=== PATIENT | female | born 2000 ===

== ENCOUNTER 2020-02-05 04:25 | Inpatient (IN) ==
--- NOTE | 2020-02-05 05:08 | History & Physical Report ---
Date of Service February 05, 2020 Assessment & Plan (1) Sepsis: Possible deep neck space infection (? Javier's angina) recent tonsillectomy for chronic tonsillitis hypertension BP currently stable hyperprolactinemia as per records, mild elevation possibly from PCOS as per outpatient Endocrinology note ADD as per records Hyperglycemia, insulin resistance from PCOS, outpatient hemoglobin A1c of 5.02 September 2018 ICU monitoring to monitor for airway obstruction Cultures, Unasyn ENT consultation Re: Post tonsillectomy submandibular swelling ([facility] ER provider already in touch with Dr. Cruz.) N.p.o. until patient seen by ENT. DVT prophylaxis. SCDs RE post tonsillectomy bleed Full code Case discussed with Dr. Cruz. He agrees with antibiotics for now. Hold off on additional steroid Rx until he sees patient in a.m. Text document was generated using [employer] recognition software. It may contain grammatical or spelling errors. Kindly contact undersigned for clarification of any documentation item in question. History of Present Illness Chief Complaint: ENT evaluation Primary Care Provider: Desi Hayden PA-C History obtained from patient and records. History somewhat limited from patient due to dysarthria/muffled voice. Medical history significant for hypertension, hyperprolactinemia as per records, ADD as per records, PCOS, chronic tonsillitis status post recent tonsillectomy. Patient underwent elective tonsillectomy for recurrent tonsillitis/tonsillar calculi at [facility] same-day surgery last February 02, 2020. As per operative note, Surgicel powder and Surgicel snow placed in the tonsillar fossae due to superficial nature of blood vessels running along the superior co nstrictor muscles of the pharynx. Anterior posterior tonsillar pillars were subsequently approximated by Vicryl. At home, progressive dysphagia/sore throat especially to solids noted by patient. Yesterday, patient noted achy submandibular swelling, muffled voice, and limited mouth opening. No tooth ache symptoms. No chest pain, no S OB. No fever, no chills. Patient subsequently gagged after taking a pill. Note of bloody sputum. Patient brought to [facility] ER for evaluation. Patient noted to be tachycardic on arrival at the ER. Sublingual swelling appreciated by ER provider on [place] as per documentation. Bedside neck ultrasound done by ER provider disclosed a hypoechoic area in the submental/submandibular space concerning for fluid collection causing pressure on upper airways. Patient given Decadron and Clindamycin at the ER. No ENT coverage at [facility] this weekend. Patient transferred to [facility] for ENT services after ER provider discussed case with ENT specialist building consultant for patient surgeon. 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 Allergies Allergy/AdvReac Type Severity Reaction Status Date / Time No Known Allergies Allergy Unverified 02/05/20 05:59 Home Medications Home Medications Medication Instructions Recorded Confirmed Type amlodipine 10 mg PO DAILY 02/05/20 02/05/20 History hydrocodone-acetaminophen 15.3 ml PO Q6H PRN 02/05/20 02/05/20 History levocetirizine 5 mg PO DAILY 02/05/20 02/05/20 History melatonin 5 mg PO HS 02/05/20 02/05/20 History norethindrone-e.estradiol-iron 1 tab PO DAILY 02/05/20 02/05/20 History [04/18 (28)] Past Med/Surg History Social History Smoking Status: Never smoker Hx Alcohol Use: No Hx Substance Use: No Preferred Language: Chilean Communication Ability: Effective Form Setter/Driver Required: No Beliefs That Will Affect Care: None Current Living Situation: Spouse Other Information That Helps Us Care for You: No Feels Safe at Home: Yes Safety Concerns: Feels Safe At This Time Assistive Devices: None Review of Systems Review of Systems: As per HPI, all 10 systems reviewed, all other ROS negative Physical Exam Physical Exam: GENERAL: uncomfortable, anxious, obese, muffled voice, no respiratory distress SKIN: Normal color, warm HEENT: [place] palpebral conjunctivae, no ptosis, dry buccal mucosa, oropharyngeal exam limited by trismus NECK : Supple, tender submandibular swelling CHEST : CTA, no tenderness HEART : RRR, no obvious murmurs ABDOMEN: Some distention, nontender EXTREMITIES : No LE swelling/tenderness, no other conspicuous deformities noted NEUROLOGIC : Coherent, no facial asymmetry, no other gross focality Results & Data Results & Data ([facility]) Vital Signs (Past 12 Hours) Vital Signs Height Weight Body Mass Index Blood Pressure Blood Pressure Position Temperature Temperature Source 5 ft 73.6 kg 31.6 134/74 Lying 37 C Oral 02/05/20 05:21 02/05/20 05:21 02/05/20 05:21 02/05/20 05:21 02/05/20 05:21 02/05/20 05:21 02/05/20 05:21 Pulse Rate Respiratory Rate Pulse Oximetry 87 15 95 02/05/20 05:21 02/05/20 05:21 02/05/20 05:21 Laboratory Results [facility] (02/03) Hemoglobin 15, hematocrit 45, WBC 21, platelets 448 Sodium 141, potassium 3.5, chloride 102, CO2 24, BUN 11, creatinine 0.6, glucose 122 Diagnostic Findings [facility] (02/04) CT neck with contrast: At the site of tonsillectomy, there is a hypoattenuation, likely packing material. Surgicel based on operative note. These somewhat narrowed the airway. No evidence of active hemorrhage on the current scan.
[2020-02-05] MEDS ORDERED: ICU PROTOCOL FOR HYPERGLYCEMIA PRN (05:12)
[2020-02-05] MEDS ORDERED: traMADol HCL 50 MG TABLET PO PRN (05:15)
[2020-02-05] MEDS ORDERED: PROMETHAZINE HCL 12.5 MG in SODIUM CHLORIDE 0.9% 50 ML IV PRN (05:15)
[2020-02-05] MEDS ORDERED: LORazepam 0.25 MG/0.5 ML VIAL IV PRN (05:15)
[2020-02-05] MEDS ORDERED: MoRPHine SULFATE 4 MG/ML 1 ML CARP\\VIAL IV PRN ×2 (05:15→06:13)
[2020-02-05] MEDS ORDERED: ACETAMINOPHEN 325 MG TAB PO PRN (05:15)
--- NOTE | 2020-02-05 05:37 | Critical Care Consultation ---
Date of Consultation February 05, 2020 Assessment & Plan (1) Post-tonsillectomy pain: (2) Infection of tonsil: (3) Respiratory distress following surgery: (4) Admitted to intensive care unit: Reason Critically Ill: 19-year-old female with recent tonsillectomy presents to the ICU with evidence of airway compression from sutured Surgicel with likely hematoma or Neuro - Pain management: PRN morphine Cardiac - NSR and normotensive History of hypertensioncontinue amlodipine Continuous monitor on telemetry Respiratory - Upper airway edemapatient presents with increased swelling of the upper airways following tonsillectomy 3 days ago, now having trouble swallowing and speaking -Evidence of upper airway narrowing on CT scan, most likely packing from surgery -Patient evaluated the bedside by , and plan for patient to go this a.m. to the OR for removal of sutured Surgicel dressings at site of tonsillectomy which may have formed hematoma/abscess -We will follow up surgery recommendations -Patient did receive 10 mg dexamethasone at OSH, and 1 dose of clindamycin -We will follow-up with surgery concerning continuation of steroids -Currently patient is maintaining sats on room air, will monitor with continuous pulse ox -Patient will most likely remain intubated following surgery due to significance of swelling and risk of occlusion of upper airway GI - N.p.o. for surgery RENAL/LYTES - Creatinine and BMP pending LR at 80 mL/h - Strict I's and O's ENDO - No history of diabetes or thyroid disease -ICU hyperglycemic protocol HEME - H&H stable, monitor routine CBCs ID WBC 20, afebrile, lactic acid within normal limits MRSA PCR positive Patient to undergo removal of sutures with Surgicel, but cannot rule out abscess at this time Continue Unasyn, adding Vanco for MRSA coverage LINES/IV ACCESS - PIV's DVT PROPHYLAXIS - SCDs I have personally spent 40 minutes of critical care time in the direct management of this patient. This is a life/limb threatening event. This includes time spent evaluating patient, direct bedside care, chart review, placing orders, interpretation of diagnostic studies, discussion with consultants, patient, and family members, as well as other required patient management activities. This time is exclusive of all separately billable procedures, and teaching time and separate from and in addition to any other critical care service time. Thank you for allowing us to participate in the care of this patient. Please refer to my attending physician's documentation for any further recommendations. (5) Airway compromise: History of Present Illness Attending Physician: Guille Stovall MD History of Present Illness Patient is a 19-year-old female with PMH of HTN, ADD, recurrent otitis media, recurrent sinus infections, and chronic idiopathic urticaria. She recently underwent adenoidectomy x3 days ago and has been discharged home. Earlier yesterday evening she presented to [facility] ED with complaints of inability to swallow pill, increased difficulties with speech, and bloody sputum. She was noted to have trouble drinking water. A bedside ultrasound revealed hypoechoic echoic area submental/submandibular with concern for fluid collection causing pressure on upper airways. She was given 10 mg dexamethasone and clindamycin. Patient was accepted by Dr. Cruz at [facility] for ENT services. She underwent CT of the neck with contrast, which revealed narrowing of the airway from an area at the site of the tonsillectomy which is most likely packing material. On arrival to the ICU patient is alert and oriented, appears to be in mild distress and pain. She has significant throat pain and associated difficulty sp eaking. She denies any other symptoms at this time. She was evaluated by at the bedside. Per our discussion, plan is for patient to be taken to the OR for removal of Surgicel packing the sutured patient's tonsils which may have hematoma or abscess. As of now, plan is for patient to remain intubated postop. Allergies Allergy/AdvReac Type Severity Reaction Status Date / Time No Known Allergies Allergy Unverified 02/05/20 05:59 Home Medications Home Medications Medication Instructions Recorded Confirmed Type amlodipine 10 mg PO DAILY 02/05/20 02/05/20 History hydrocodone-acetaminophen 15.3 ml PO Q6H PRN 02/05/20 02/05/20 History levocetirizine 5 mg PO DAILY 02/05/20 02/05/20 History melatonin 5 mg PO HS 02/05/20 02/05/20 History norethindrone-e.estradiol-iron 1 tab PO DAILY 02/05/20 02/05/20 History [04/18 (28)] Patient History Social History Smoking Status: Never smoker Hx Alcohol Use: No Hx Substance Use: No Preferred Language: American Communication Ability: Effective Superintendent House Required: No Beliefs That Will Affect Care: None Current Living Situation: Spouse Other Information That Helps Us Care for You: No Feels Safe at Home: Yes Safety Concerns: Feels Safe At This Time Assistive Devices: None Review of Systems Review of Systems: All systems reviewed & are unremarkable except as noted in HPI & below Physical Exam Constitutional: + in distress Eyes: PERRL, conjunctivae normal, anicteric sclerae ENMT: There is significant tongue and tonsillar swelling. No signs of Kirsten infection or clear signs of exudate. Neck: trachea midline, no thyromegaly Respiratory: normal respiratory effort, lungs clear to auscultation symmetric chest movement; does not use accessory muscles and no cough Auscultation: no crackles and no wheezes Cardiovascular: RRR, no murmur, no edema Heart Sounds: normal S1 and normal S2 Vessels: no JVD Extremities: normal capillary refill; no edema Gastrointestinal (Abdomen): normal bowel sounds, soft, nontender, no hepatosplenomegaly Musculoskeletal: no cyanosis or clubbing, extremities motor strength 5/5 Skin: no rashes, warm and dry Neurologic: PERRL, EOMI, accommodation nl, no face palsy, no dysarthria Psychiatric: A+Ox3, euthymic affect Coding Level of Care Code Critical Care 1st 30-74 mins Diagnoses Post-tonsillectomy pain G89.18; Z90.89 Infection of tonsil J35.01 Respiratory distress following surgery J95.89; R06.03 Admitted to intensive care unit Z78.9 Airway compromise J98.8
[2020-02-05] MEDS ORDERED: KETOROLAC TROMETHAMINE 15 MG/ML VIAL IV ONE (06:01)
[2020-02-05 06:09] LABS: Basophils # (auto) 0.01 K/uL (0-0.2); Hematocrit (blood only) 42.3 % (37-47); Hemoglobin 13.9 g/dL (12.0-16.0); Immature Granulocytes # (auto) 0.05 K/uL (0.00-0.02); Immature Granulocytes % (auto) 0.2 %; Lymphocytes # (auto) 0.93 K/uL (1.2-3.4); Lymphocytes % (auto) 4.5 %; Mean Corpuscular Hemoglobin 28.5 pg (25-34); Mean Corpuscular Hgb Conc 32.9 g/dL (32-36); Mean Corpuscular Volume 86.7 fL (80-100); Mean Platelet Volume 9.4 fL (7.4-10.4); Monocytes # (auto) 0.38 K/uL (0.11-0.59); Monocytes % (auto) 1.8 %; Neutrophils # (auto) 19.41 K/uL (1.4-6.5); Neutrophils % (auto) 93.5 %; Platelet Count 415 K/uL (130-400); RDW Coefficient of Variation 13.3 % (11.5-14.5); RDW Standard Deviation 42.6 fL (36.4-46.3); Red Blood Count 4.88 M/uL (4.2-5.4); White Blood Count 20.78 K/uL (4.8-10.8)
[2020-02-05] MEDS ORDERED: ACETAMINOPHEN SUSP 325 MG/10.15 ML UDC PO PRN (06:11)
[2020-02-05 06:33] LABS: Alanine Aminotransferase 67 U/L (12-78); Albumin Level 3.7 gm/dl (3.4-5.0); Aspartate Aminotransferase 31 U/L (15-37); Blood Urea Nitrogen 9 mg/dl (7-18); Calcium 9.2 mg/dl (8.5-10.1); Carbon Dioxide 24 mmol/L (21-32); Chloride 108 mmol/L (98-107); Est GFR (African American) > 150.0; Est GFR (Non-African American) 131.2; Glucose 124 mg/dl (70-99); Magnesium 2.5 mg/dl (1.8-2.4); Potassium 3.8 mmol/L (3.5-5.1); Sodium 139 mmol/L (136-145)
[2020-02-05 06:36] LABS: Albumin Globulin Ratio 0.8 (0.9-2); Alkaline Phosphatase 98 U/L (45-117); Bilirubin,Total 0.7 mg/dl (0.2-1); Globulin 4.8 gm/dl (2.5-4.0); Total Protein 8.5 gm/dl (6.4-8.2)
[2020-02-05 06:38] LABS: INR 1.1 (0.9-1.1); Partial Thromboplastin Ratio 1.2; Partial Thromboplastin Time 32.6 Seconds (21.0-31.0); Prothrombin Time 11.3 Seconds (9.0-12.0)
[2020-02-05] MEDS: PATIENT'S ALLERGY INFO NEEDS ENTERED SCH ×2 (06:48→11:33)
[2020-02-05] MEDS ORDERED: AMPICILLIN/SULBACTAM CONSULT ACTIVE PRN (06:51)
[2020-02-05] MEDS ORDERED: BUPIVACAINE 0.5 % 5 MG/1 ML MPF 30ML VIAL ONE (06:57)
[2020-02-05] MEDS ORDERED: EPINEPHrine INJ 1 MG/ML AMP ONE (06:57)
[2020-02-05] MEDS ORDERED: CHLORHEXIDINE GLUCONATE 0.12% 480 ML ONE (06:57)
[2020-02-05] MEDS ORDERED: MIDAZOLAM HCL 1 MG/ML 2ML VIAL ONE (07:02)
[2020-02-05] MEDS ORDERED: fentaNYL citrate 100 MCG/2 ML VIAL ONE (07:02)
[2020-02-05] MEDS ORDERED: LIDOCAINE/EPINE 2% 1:100,000 20ML ONE (07:10)
[2020-02-05] MEDS ORDERED: KETAMINE 50 MG/5 ML SYRINGE ONE (07:22)
[2020-02-05] MEDS ORDERED: OXYMETAZOLINE 0.05% 30 ML BTL ONE (07:24)
--- NOTE | 2020-02-05 07:30 | Anesthesiology Consultation ---
Date of Service February 05, 2020 Assessment & Plan (1) Encounter for pre-operative examination: Chart Review Chart Review: Acceptable Risk for Surgery Consults Requested none ASA [id number] Proposed Anesthesia Anesthesia Type: General Risk / Benefits Reviewed With: PT / POA / Parent / Guardian, Accepts Plan and Informed Consent Obtained History Surgery Operation Date: 02/05/20 07:30 Proposed Procedures p M. Facial Incision and Drainage - Juju Cruz MD Height/Weight Height: 5 ft Weight: 73.6 kg Allergies Allergy/AdvReac Type Severity Reaction Status Date / Time No Known Allergies Allergy Unverified 02/05/20 05:59 Medications Home Medications Medication Instructions Recorded Confirmed Last Taken amlodipine 10 mg PO DAILY 02/05/20 02/05/20 Unknown hydrocodone-acetaminophen 15.3 ml PO Q6H PRN 02/05/20 02/05/20 Unknown levocetirizine 5 mg PO DAILY 02/05/20 02/05/20 Unknown melatonin 5 mg PO HS 02/05/20 02/05/20 Unknown norethindrone-e.estradiol-iron 1 tab PO DAILY 02/05/20 02/05/20 Unknown [04/18 (28)] Exercise / Class Metabolic Activity II 4-5 Yardwork/Stairs/Walk up hill Past Anesthesia History No Hx of Anesthesia Complications and No Family Hx of Anesthesia Complications History of PONV No Hx of PONV and No Hx of Motion Sickness Social History Smoking Status: Never smoker Hx Alcohol Use: No Hx Substance Use: No Physical Exam Vital Signs Last Vital Signs Temp 98.6 F 02/05/20 05:21 Pulse 87 02/05/20 05:21 Resp 15 02/05/20 05:21 BP 134/74 02/05/20 05:21 Pulse Ox 95 02/05/20 05:21 ENMT Mouth: + chipped teeth (Chipped upper left) and + small oral opening Thyromental Distance: > or= 3.5 Finger Breadths Mallampati Class: IV Neck normal visual inspection Respiratory normal respiratory effort Auscultation: lungs clear to auscultation bilaterally Cardiovascular Rate/Rhythm: regular rhythm and + tachycardic Testing Laboratory Results 02/05/20 05:55 02/05/20 05:55 PT 11.3 Seconds (9.0-12.0) 02/05/20 05:57 INR 1.1 (0.9-1.1) 02/05/20 05:57 APTT 32.6 Seconds (21.0-31.0) H 02/05/20 05:57 Blood Type O Negative 02/05/20 05:55 Antibody Screen NEGATIVE 02/05/20 05:55
[2020-02-05] MEDS ORDERED: VANCOMYCIN CONSULT ACTIVE PRN (07:31)
[2020-02-05] MEDS ORDERED: VANCOMYCIN HCL 1,500 MG in SODIUM CHLORIDE 0.9% 500 ML IV ONE (07:31)
--- NOTE | 2020-02-05 07:35 | History & Physical Bridge Note ---
Date of Service February 05, 2020 History & Physical Bridge Note I have examined the patient, reviewed the History & Physical and in the interval since the performance of the History & Physical I have noted the following changes of clinical significance: no changes noted
--- NOTE | 2020-02-05 07:42 | ENT Consultation ---
Date of Consultation February 05, 2020 History of Present Illness Reason for Consultation: Tonsils and submental abscess Attending Physician: Guille Stovall MD History of Present Illness 19-year-old lady transferred from [place] after tonsillectomy developed significant odynophagia and dysphagia and spitting up dark blood found to have 2 cm swelling in this submental area on ultrasound and also right tonsillar cavity hematoma versus abscess on CT scan. The operative note showed that the tonsillar fossa's were closed with Surgicel packing. Her white count was elevated and there is early airway impingement therefore she is being brought emergently to the OR for evaluation of her pharynx and drainage Allergies Allergy/AdvReac Type Severity Reaction Status Date / Time No Known Allergies Allergy Unverified 02/05/20 05:59 Home Medications Home Medications Medication Instructions Recorded Confirmed Type amlodipine 10 mg PO DAILY 02/05/20 02/05/20 History hydrocodone-acetaminophen 15.3 ml PO Q6H PRN 02/05/20 02/05/20 History levocetirizine 5 mg PO DAILY 02/05/20 02/05/20 History melatonin 5 mg PO HS 02/05/20 02/05/20 History norethindrone-e.estradiol-iron 1 tab PO DAILY 02/05/20 02/05/20 History [04/18 (28)] Patient History Social History Smoking Status: Never smoker Hx Alcohol Use: No Hx Substance Use: No Preferred Language: Zimbabwean Communication Ability: Effective 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 Cocktail Lounge Required: No Beliefs That Will Affect Care: None Current Living Situation: Spouse Other Information That Helps Us Care for You: No Feels Safe at Home: Yes Safety Concerns: Feels Safe At This Time Assistive Devices: None Physical Exam Constitutional: + acute distress and + ill appearing Eyes: PERRL, conjunctivae normal, anicteric sclerae ENMT: Mouth: + oropharynx abnormality (Significant right greater than left palatal swelling with uvular swelling s), + oral mucosal abnormality (Right greater than left soft palate swelling), + tongue abnormality (Swollen with Mallampati 3), + muffled voice and + trismus (With significant uvular swelling) Neck: + anterior neck swelling (In the right submental area, not fluctuant but very swollen), + submandibular swelling (Significant swelling of the right submandibular area without actual fluctua) and + neck tender (Right submandibular area) Respiratory: normal respiratory effort, lungs clear to auscultation Results & Data ([facility]) Vital Signs (Past 12 Hours) Vital Signs Temp Pulse Resp BP Pulse Ox 02/05/20 05:21 37 C 87 15 134/74 95
[2020-02-05] MEDS ORDERED: VANCOMYCIN HCL 1,750 MG in SODIUM CHLORIDE 0.9% 500 ML IV SCH (08:00)
--- NOTE | 2020-02-05 08:15 | Operative Report ---
PG Post Operative Report Pre & Post Diagnosis Operation Date: 02/05/20 07:30 Pre-Op Diagnosis: Tonsillar abscess and tonsillar bleed Post-Op Diagnosis: Tonsillar abscess and tonsillar bleed I identified the patient and participated in the time-out.: Yes Procedure Operation Date: 02/05/20 07:30 Actual Procedures p Incision and Drainage of Tonsillar Abscess with Hemostasis of the tonsillar bleed (Not Applicable) - Juju Cruz MD Surgeon Juju Cruz MD Mail Handler Assistant None Estimated Blood Loss 20 Findings Consistent with Post-Op Diagnosis Specimens Culture Anesthesia Type General Complications none Disposition Accompanied Patient To Recovery: Yes Disposition: Recovery Room Indications 19-year-old transfer from [place] with sepsis with CT showing possible airway impingement Description of Procedure She was brought to the operating room, properly identified, prepped and draped in usual sterile manner after general endotracheal anesthesia. The mouthgag was placed and the pharynx was suctioned clean the sutures from anterior to the posterior pillar were Vicryl. These were divided first on the left side and on the right side. A large sponge of Surgicel was removed from the left and then the right side. There was purulent material in the right side which was cultured. There was bleeding also on the right side which was suction cauterized with good hemostasis. The pharynx was irrigated clean with saline and suctioned clean. She tolerated procedure well and was taken back to the ICU. I attest to the content of the Intraoperative Record and any orders documented therein. Any exceptions are noted below.
[2020-02-05] MEDS ORDERED: PROPOFOL IV EMULSION 10 MG/ML 20 ML VIAL IV ONE (08:23)
[2020-02-05] MEDS ORDERED: GLYCOPYRROLATE 0.2 MG/ML VIAL ONE (08:23)
[2020-02-05] MEDS ORDERED: LIDOCAINE HCL 2% 2 ML VIAL/AMP(20MG/ML) INFIL ONE (08:23)
--- NOTE | 2020-02-05 08:56 | Anesthesiology Progress Note ---
Date of Service February 05, 2020 Anesthesia Post Procedure Vital Signs Vital Signs: Temp Pulse Resp BP Pulse Ox 02/05/20 08:50 102 H 14 148/86 H 95 02/05/20 08:39 107 H 14 144/89 H 95 02/05/20 08:30 98.2 F 113 H 16 151/88 H 94 02/05/20 07:26 100 H 18 97 02/05/20 07:00 98.1 F 78 20 143/100 H 98 02/05/20 05:21 98.6 F 87 15 134/74 95 Pain Intensity Bilateral Throat: Pain Intensity: 4 Transfer of Care Handoff Completed per policy Notes Mental Status: alert / awake / arousable and participated in evaluation Patient Amnestic to Procedure: Yes Nausea / Vomiting: adequately controlled Pain: adequately controlled Airway Patency, RR, SpO2: stable & adequate BP & HR: stable & adequate Hydration State: stable & adequate Anesthetic Complications: no major complications apparent and Pt Satisfied with anesthetic care
[2020-02-05] MEDS: LACTATED RINGER'S 1,000 ML IV SCH (09:16)
[2020-02-05] MEDS: AMPICILLIN/SULBACTAM SOD 3,000 MG in 0.9 % SODIUM CHLORIDE 100 ML IV SCH ×3 (09:16→19:50)
--- NOTE | 2020-02-05 10:25 | Pharmacy Report ---
Pharmacy Abx Dose Short Note - Date of Service February 05, 2020 - Assessment & Plan Assessment 19 year old F s/p tonsillectomy at [facility] on 02/01 due to chronic tonsillitis. Admitted to [facility] for sublingual swelling. Pt having trouble swallowing and speaking. Pharmacy consulted to dose Vancomycin by Jay Steward on 02/04. Day # 1 of antimicrobial therapy. * Blood cultures pending * Renal function at baseline * MRSA swab positive * I&D of abscess this morning. Plan Vancomycin for treatment of tonsil abscess. Vancomycin IV * Patient meets criteria for vancomycin AUC dosing nomogram * AUC/TANIKA is the preferred PK/PD target for vancomycin * Target AUC/TANIKA = 400-600 * AUC guided dosing is effective and associated with decreased risk of nephrotoxicity * Estimated PK Parameters: Vd 0.65 L/kg, Iggy 0.104 hr-1, t1/2 6.67hr. AUC dosing appropriate. * Loading dose: 1750 mg (24 mg/kg) * Maintenance dose: 1250 mg IV (17 mg/kg) every 8 hours * Goal trough level for possible MRSA : 15 to 20 mcg/mL * Trough level ordered for 02/06/20 @1530 Pt also on Unasyn 3gm q6h. Pharmacy will continue to follow and will adjust dose/frequency as necessary. Thank you.
--- NOTE | 2020-02-05 11:25 | Critical Care Progress Note ---
Date of Service February 05, 2020 Assessment & Plan (1) Post-tonsillectomy pain: (2) Infection of tonsil: (3) Respiratory distress following surgery: 19-year-old female with recent tonsillectomy transferred from [place] to the ICU with evidence of airway compression from sutured Surgicel and impending respiratory failure. --Upper airway tonsillar cavity hematoma versus abscess Impending respiratory failure Monitor in ICU Patient is 4 OR today. If there is any worsening we will do fiberoptic intubation New with antibiotics to cover for gram-positive as well as gram-negative and anaerobes. As the patient recently had surgery we will also give her 1 dose of vancomycin Patient did get dexamethasone 10 mg today. ENT on board Pain management --Sepsis Likely from postsurgical tonsillar cavity abscess/infection Continue with antibiotics Follow-up septic work-up --Hypertension Patient was recently started on antihypertensive 3 weeks ago Hypertension could be reflex to her pain We will reassess if she truly needs to be on hypertensive medication after pain being adequately controlled --Prophylaxis VTE: None as patient is going to the OR GI: None Lines: Peripheral Diet: N.p.o. Plan: Patient for today. Pain management Continue with antibiotics Follow-up septic work-up I have personally spent 25 minutes of critical care time in the direct management of this patient. This is a life/limb threatening event. This includes time spent evaluating patient, direct bedside care, chart review, placing orders, interpretation of diagnostic studies, discussion with consultants, patient, and family members, as well as other required patient management activities. This time is exclusive of all separately billable procedures, and teaching time and separate from and in addition to any other critical care service time. Please note the above document was generated using voice recognition software. It may contain grammatical, syntax or spelling errors. (4) Admitted to intensive care unit: (5) Airway compromise: Admission and Anticipated Discharge Date Admission Date: February 05, 2020 Subjective Patient seen and examined at bedside. In distress secondary to pain. Patient has muffled voice. She is able to maintain her oxygenation. Denies any chest pain, no shortness of breath, no headache, no blurry vision. Afebrile since coming to the hospital. Review of Systems Review of Systems: All systems reviewed & are unremarkable except as noted in Subjective Physical Exam Physical Exam: Constitutional: In distress secondary to pain HEENT: EOMI, PERRLA, swollen submandibular area, no clear stridor appreciated, positive cervical lymphadenopathy, muffled voice Respiratory system: Good air entry bilaterally, no wheeze, no rhonchi, no crackles CVS: S1-S2 positive, no murmurs or gallops, tachycardia Abdomen: Soft, nontender, nondistended, positive bowel sounds x4 Extremities: +2 pulses bilaterally radialis/ dorsalis pedis, no cyanosis, no edema Neuro: Awake alert oriented x3 Psych: Normal mood and affect G/U: No Tang Skin: no rashes, warm and dry Lymphatic: + cervical lymphadenopathy Results & Data Results & Data ([facility]) Vital Signs (Past 12 Hours) Vital Signs Temp Pulse Resp BP Pulse Ox 02/05/20 10:19 36.8 C 74 20 134/74 96 02/05/20 09:02 82 14 129/77 95 02/05/20 08:50 102 H 14 148/86 H 95 02/05/20 08:39 107 H 14 144/89 H 95 02/05/20 08:30 36.8 C 113 H 16 151/88 H 94 02/05/20 07:26 100 H 18 97 02/05/20 07:00 36.7 C 78 20 143/100 H 98 02/05/20 05:21 37 C 87 15 134/74 95 02/05/20 05:55 02/05/20 05:55 Coding Level of Care Code Critical Care ea addt'l 30 min Diagnoses Post-tonsillectomy pain G89.18; Z90.89 Infection of tonsil J35.01 Respiratory distress following surgery J95.89; R06.03 Admitted to intensive care unit Z78.9 Airway compromise J98.8 Time Spent (min) 25
--- NOTE | 2020-02-05 12:40 | Hospitalist Progress Note ---
Date of Service February 05, 2020 Assessment & Plan (1) Post-tonsillectomy pain: (2) Infection of tonsil: (3) Respiratory distress following surgery: Taken to OR and purulent drainage washed out with bleeding cauterized in R tonsil. Now on broad spectrum antibiotics. She is without pain and is hemodynamically stable in the ICU. She is oxygenating well on room air and is advancing her diet as tolerated. (4) DVT prophylaxis: no chemoprophylaxis with recent post-operative bleeding SCDs/ambulation Full Code Dispo-to home when medically stable and tolerating PO reliably, likely 1-2 days. Es Beaulieu [facility] and Anticipated Discharge Date Admission Date: February 05, 2020 Subjective 19 yo F with recent tonsillectomy 3 days ago presented to [facility] overnight with concerns of difficulty swallowing increased difficulty speaking and bloody sputum. A bedside ultrasound was performed with concern for fluid collection causing pressure on the airways and she was transferred to [facility] for urgent ENT evaluation. She was seen by Dr. Cruz this morning and taken to the OR for treatment of a tonsillar abscess with tonsillar bleeding. The bleeding was cauterized and the purulent material on the right side was cultured. She remains in the ICU and has been extubated oxygenating well on room air. She is awake and oriented and denies any pain at this time. She appears to be recovering well and is advancing her diet as tolerated today. Review of Systems Review of Systems: All systems reviewed & are unremarkable except as noted in Subjective Physical Exam Physical Exam: CONSTITUTIONAL: WNWD, vitals as above, generally well- appearing EYES: pupils are round and equal bilaterally, normal conjunctivae, no scleral icterus ENT: external ear and nose normal, oropharynx clear but did not examine too far back as she is recently out of the OR a couple of hours ago, no palpable LAD or tenderness in cervical or submandicular region, no maxillary or ethmoid sinus tenderness NECK: trachea midline, no lymphadenopathy RESPIRATORY: clear to auscultation bilaterally, no crackles, rales or wheezes, normal respiratory effort CARDIOVASCULAR: regular rate and rhythm, S1 and 2 heard without murmurs, gallops or rubs, no JVD, no peripheral edema GASTROINTESTINAL: soft, nontender, nondistended, no guarding MUSCULOSKELETAL: strength 5/5 throughout, head is normocephalic and atraumatic SKIN: warm and dry NEUROLOGIC: No facial palsy, no dysarthria. CN 2-12 grossly intact, no sensory deficit, normal cognition, normal speech, no gross focal deficits. PSYCHIATRIC: alert cooperative and oriented to person, place and time. Results & Data Results & Data ([facility]) Vital Signs (Past 12 Hours) Vital Signs Temp Pulse Resp BP Pulse Ox 02/05/20 12:05 37.0 C 76 20 126/74 94 02/05/20 11:30 74 20 144/74 H 95 02/05/20 11:00 37.0 C 87 20 157/87 H 97 02/05/20 10:30 84 18 137/84 97 02/05/20 10:19 36.8 C 74 20 134/74 96 02/05/20 10:00 37.0 C 84 20 134/77 97 02/05/20 09:45 80 20 147/76 H 97 02/05/20 09:30 36.8 C 88 18 146/87 H 96 02/05/20 09:15 36.6 C 78 20 133/98 96 02/05/20 09:02 82 14 129/77 95 02/05/20 08:56 36.4 C L 99 H 20 139/81 95 02/05/20 08:50 102 H 14 148/86 H 95 02/05/20 08:39 107 H 14 144/89 H 95 02/05/20 08:30 36.8 C 113 H 16 151/88 H 94 02/05/20 07:26 100 H 18 97 02/05/20 07:00 36.7 C 78 20 143/100 H 98 02/05/20 05:21 37 C 87 15 134/74 95 Laboratory Results Short CBC 02/05/20 Range/Units 05:55 WBC 20.78 H (4.8-10.8) K/uL Hgb 13.9 (12.0-16.0) g/dL Hct 42.3 (37-47) % Plt Count 415 H (130-400) K/uL BMP 02/05/20 05:55 Sodium 139 Potassium 3.8 Chloride 108 H Carbon Dioxide 24 BUN 9 Creatinine 0.60 Glucose 124 H Calcium 9.2 Liver Function 02/05/20 Range/Units 05:55 Total Bilirubin 0.7 (0.2-1) mg/dl AST 31 (15-37) U/L ALT 67 (12-78) U/L Alkaline Phosphatase 98 (45-117) U/L Albumin 3.7 (3.4-5.0) gm/dl Medications Administered Current Inpatient Medications Acetaminophen (Acetaminophen 325 Mg Tab) 650 mg PO Q6H PRN PRN Reason: Fever Stop: 03/06/20 05:14 Acetaminophen (Acetaminophen Susp 325 Mg/10.15 Ml Udc) 650 mg PO Q6H PRN PRN Reason: pain/fever Stop: 03/06/20 06:10 Hydrocodone Bitart/Acetaminophen (Hydrocodone/Apap 2.5mg/108mg Elix 5 Ml Udp) 15 ml PO Q6H PRN PRN Reason: Pain, Moderate Stop: 02/19/20 07:47 Amlodipine Besylate (Amlodipine Besylate 5 Mg Tab) 10 mg PO DAILY CHRISTIANO Stop: 03/06/20 08:59 Promethazine HCl 12.5 mg/ (Sodium Chloride) 50.5 mls @ 202 mls/hr IV Q6H PRN PRN Reason: Nausea And Vomiting Stop: 03/06/20 05:14 Lorazepam (Ativan) 0.25 mg in 0.5 mls @ 0.5 mls/min IV Q4H PRN PRN Reason: Anxiety Stop: 03/06/20 05:14 Lactated Ringer's (Lr) 1,000 mls @ 80 mls/hr IV .[id number] CHRISTIANO Stop: 03/06/20 05:59 Last Admin: 02/05/20 09:16 Dose: 80 mls/hr Documented by: Ampicillin Sodium/Sulbactam Sodium 3,000 mg/ Sodium Chloride 108 mls @ 216 mls/hr IV Q6H CHRISTIANO Stop: 02/15/20 06:59 Last Infusion: 02/05/20 10:12 Dose: Infused Documented by: Vancomycin HCl 1,250 mg/ (Sodium Chloride) 275 mls @ 200 mls/hr IV Q8H CHRISTIANO Stop: 02/12/20 15:59 Melatonin (Melatonin 3 Mg Tab) 4.5 mg PO HS CHRISTIANO Stop: 03/06/20 20:59 Miscellaneous (Icu Protocol For Hyperglycemia) 1 ea N/A PRN PRN; Protocol PRN Reason: Hyperglycemia Protocol Stop: 02/07/20 05:11 Miscellaneous (Levocetirizine - Order Awaiting Action) 1 ea N/A QS [facility] Stop: 03/06/20 07:59 Last Admin: 02/05/20 10:13 Dose: 1 ea Documented by: Miscellaneous (04/18 - Order Awaiting Action) 1 ea N/A QS [facility] Stop: 03/06/20 07:59 Last Admin: 02/05/20 10:12 Dose: 1 ea Documented by: Miscellaneous Information (Ampicillin/Sulbactam Consult Active) 1 ea N/A UD PRN PRN Reason: Consult Stop: 03/06/20 06:50 Miscellaneous Information (Vancomycin Consult Active) 1 ea N/A UD PRN PRN Reason: Consult Stop: 03/06/20 07:30 Morphine Sulfate (Morphine Sulfate 4 Mg/Ml 1 Ml Carp\Vial) 4 mg IV Q4H PRN PRN Reason: Pain Stop: 02/19/20 05:14
[2020-02-05] MEDS: amLODIPine BESYLATE 5 MG TAB PO SCH (14:43)
[2020-02-05] MEDS: VANCOMYCIN HCL 1,250 MG in SODIUM CHLORIDE 0.9% 250 ML IV SCH (17:05)
[2020-02-05] MEDS ORDERED: MELATONIN 3 MG TAB PO SCH (21:00)
[2020-02-06] MEDS: VANCOMYCIN HCL 1,250 MG in SODIUM CHLORIDE 0.9% 250 ML IV SCH ×2 (00:57→09:13)
[2020-02-06] MEDS: AMPICILLIN/SULBACTAM SOD 3,000 MG in 0.9 % SODIUM CHLORIDE 100 ML IV SCH ×3 (01:03→13:05)
[2020-02-06] MEDS: LACTATED RINGER'S 1,000 ML IV SCH (01:03)
[2020-02-06 05:02] LABS: Hematocrit (blood only) 38.6 % (37-47); Hemoglobin 12.7 g/dL (12.0-16.0); Mean Corpuscular Hemoglobin 28.4 pg (25-34); Mean Corpuscular Hgb Conc 32.9 g/dL (32-36); Mean Corpuscular Volume 86.4 fL (80-100); Mean Platelet Volume 9.2 fL (7.4-10.4); Platelet Count 365 K/uL (130-400); RDW Coefficient of Variation 13.3 % (11.5-14.5); RDW Standard Deviation 42.2 fL (36.4-46.3); Red Blood Count 4.47 M/uL (4.2-5.4); White Blood Count 14.75 K/uL (4.8-10.8)
[2020-02-06 05:45] LABS: Basophils # (auto) 0.04 K/uL (0-0.2); Basophils % (auto) 0.3 %; Eosinophils # (auto) 0.03 K/uL (0-0.5); Eosinophils % (auto) 0.2 %; Immature Granulocytes # (auto) 0.03 K/uL (0.00-0.02); Immature Granulocytes % (auto) 0.2 %; Lymphocytes # (auto) 5.32 K/uL (1.2-3.4); Lymphocytes % (auto) 36.1 %; Monocytes # (auto) 1.18 K/uL (0.11-0.59); Neutrophils # (auto) 8.15 K/uL (1.4-6.5); Neutrophils % (auto) 55.2 %
[2020-02-06 05:46] LABS: Calcium 8.9 mg/dl (8.5-10.1); Est GFR (African American) 146.7; Est GFR (Non-African American) 126.5; Potassium 3.1 mmol/L (3.5-5.1)
[2020-02-06] MEDS ORDERED: POTASSIUM CHLORIDE 20 MEQ/15 ML UDC PO STA (05:47)
--- NOTE | 2020-02-06 05:54 | Critical Care Progress Note ---
Date of Service February 06, 2020 Assessment & Plan (1) Peritonsillar abscess: Reason Critically Ill: 19 yo F PMHx significant for recent tonsillectomy, ADHD, HTN admitted for concern for airway compromise and peritonsillar infection/bleeding following tonsillectomy. Neuro - [facility] ICU: negative Sedation: none Analgesia: acetaminophen, Vicodine PRN pain - no neurologic complaints or concerns this admission. Cardiac - HTN: - Diagnosed recently, however in the setting of tonsillar pain and upcoming surgery. - Thought to be possibly secondary to above. - PCP follow up of HTN needed, as HTN unusual in this patient's age group. Respiratory / ENT - - Seen at [facility] ED with complaints of inability to swallow pills, increased difficulties with speech, and bloody sputum. - Bedside ultrasound revealed hypoechoic echoic area submental/submandibular with concern for fluid collection causing pressure on upper airways. - Admitted by ENT at [facility]. - CT Neck w/ contrast showed narrowing of the airway from an area at the site of the tonsillectomy (likely 2/2 packing material). - Now post-OR; had Surgicel packing removed and abscess in the right tonsillar fossa drained. - Patient tolerated clear liquids this AM. GI - - Clear liquid diet with advance as tolerated. RENAL/LYTES - - No significant electrolyte derangement. - Replace lytes as needed. - - No concerns at this time. ENDO - - No history of diabetes or thyroid disease. - ICU hyperglycemia protocol. HEME - - Stable H&H, monitor routine CBCs while admitted. ID - Sepsis due to ENT source: - On admission with tachycardia and WBC 20. - Lactic acid normal. - MRSA PCR positive. - Patient was on vanc/Unasyn for peritonsillar abscess. - ENT consulted as above, tonsillar abscess drained. - WBC trended down and patient's symptoms continued to improve. LINES/IV ACCESS - - PIVs intact. DVT PROPHYLAXIS - - SCDs. Code Status: FULL CODE Thank you for allowing us to be part of this patient's care. Patient is stable from ICU and ENT perspective for downgrade to floor level of care. Please refer to Dr. Oliver's documentation for any further recommendations. (2) Tonsillar bleed: (3) Respiratory distress following surgery: (4) Post-tonsillectomy pain: Admission and Anticipated Discharge Date Admission Date: February 05, 2020 Supervising Physician Co-Signing Physician Notes Dr. Anand was resident physician during care of patient. I separately ev aluated patient for [place]oughby portions of the history and the exam. I was present during the critical portion of medical decision making, and I discussed the case with the resident. I generally agree with the findings and plan. Patient has remained stable, no evidence of airway compromise stable for downgrade out of ICU. Subjective Patient without acute events overnight. This morning reports some sore throat when swallowing, but no complaints of shortness of breath or sensation of "throat closing". Also denies CP, fevers or chills, abdominal pain, nausea, vomiting. Anxious to go home today. Review of Systems Review of Systems: All systems reviewed & are unremarkable except as noted in HPI & below Constitutional: no fever, no chills and no malaise Respiratory: no cough and no dyspnea Cardiovascular: no chest pain, no palpitations and no edema Gastrointestinal: no abdominal pain, no constipation and no diarrhea/loose stools Genitourinary: no dysuria and no hematuria Physical Exam Physical Exam: VITAL SIGNS - Vital signs and nursing notes were reviewed. GENERAL - 19 yo F well developed well nourished in no acute distress SKIN - Without rashes. HEAD - NC/AT. EYES - PERRL. Sclera anicteric. Palpebral conjunctiva pink and moist with no injection noted. EARS - No deformities of external structures noted on gross examination bilaterally. NOSE - Midline and without cyanosis. No epistaxis or purulent drainage noted. MOUTH/OROPHARYNX - No perioral cyanosis. Cracking of lips at corners. Some trismus (somewhat improved from yesterday per EMR) that is prohibiting good visualization of surgical area. NECK - Supple to palpation. No nuchal rigidity. LUNGS - CTA bilaterally CARDIAC - Regular rate and rhythm. No murmur, rubs, or gallops appreciated. ABDOMEN - soft nontender nondistended with normal bowel sounds. EXTREMITIES - No clubbing or peripheral cyanosis. No pretibial edema present. radial and dorsalis pedis pulses palpated bilaterally. NEUROLOGIC - No focal neurological deficits noted on exam. LYMPHATIC - notable 2cm submental lymph node, nontender to palpation Results & Data Results & Data ([facility]) Vital Signs (Past 12 Hours) Vital Signs Temp Pulse Resp BP Pulse Ox 02/06/20 05:08 64 15 129/80 93 02/06/20 04:08 37.2 C 68 16 137/75 93 02/06/20 03:08 89 19 131/87 02/06/20 02:08 76 16 122/78 94 02/06/20 01:08 65 17 133/79 94 02/06/20 00:21 36.9 C 103 H 18 131/86 95 02/06/20 00:00 76 02/05/20 23:08 94 H 19 128/94 02/05/20 22:08 122 H 21 135/100 94 02/05/20 21:08 104 H 20 128/84 94 02/05/20 20:08 37.2 C 105 H 23 154/90 H 94 02/05/20 20:00 92 H 02/05/20 19:08 91 H 19 127/81 94 Resident Activity Tracking Resident Involvement: Resident Care Provided Care Provided: Adult Hospital Medicine
--- NOTE | 2020-02-06 08:23 | Ears,Nose,Throat Progress Note ---
Date of Service February 06, 2020 Assessment & Plan (1) Airway compromise: This is greatly improved after removing the Surgicel packing and abscess in the right tonsillar fossa (2) Sepsis: Improved as above Admission and Anticipated Discharge Date Admission Date: February 05, 2020 Subjective Feels better, able to tolerate liquids Physical Exam Constitutional: WD/WN, vitals as above Eyes: PERRL, conjunctivae normal, anicteric sclerae ENMT: Mouth: + oropharynx abnormality (Oropharynx is much improved although she still has significant trismus whic) and + trismus Neck: trachea midline, no thyromegaly There is still submental and right submandibular swelling with a palpable 2 cm submental node that is no longer tender Respiratory: normal respiratory effort, lungs clear to auscultation Results & Data ([facility]) Vital Signs (Past 12 Hours) Vital Signs Temp Pulse Resp BP Pulse Ox 02/06/20 06:08 37.2 C 70 16 127/80 94 02/06/20 05:08 64 15 129/80 93 02/06/20 04:08 37.2 C 68 16 137/75 93 02/06/20 03:08 89 19 131/87 02/06/20 02:08 76 16 122/78 94 02/06/20 01:08 65 17 133/79 94 02/06/20 00:21 36.9 C 103 H 18 131/86 95 02/06/20 00:00 76 02/05/20 23:08 94 H 19 128/94 02/05/20 22:08 122 H 21 135/100 94 02/05/20 21:08 104 H 20 128/84 94 PG Care Time/CCT Total # of Minutes Spent Total Time Spent with Patient: Total time spent is greater than 50% in coordination of care (as documented) at patient's floor/unit and/or counseling patient: Coding Level of Care Code None Diagnoses Airway compromise J98.8 Sepsis A41.9
[2020-02-06] MEDS: amLODIPine BESYLATE 5 MG TAB PO SCH (08:30)
[2020-02-06 10:43] VITALS: TEMP 98.4
[2020-02-06 15:21] VITALS: BP 120/79; PULSE 93; O2SAT 97
[2020-02-06] MEDS ORDERED: VANCOMYCIN TROUGH ONE (15:30)
--- NOTE | 2020-02-06 15:31 | Discharge Summary ---
Date of Service February 06, 2020 Admission HPI Per Admitting Provider History obtained from patient and records. History somewhat limited from patient due to dysarthria/muffled voice. Medical history significant for hypertension, hyperprolactinemia as per records, ADD as per records, PCOS, chronic tonsillitis status post recent tonsillectomy. Patient underwent elective tonsillectomy for recurrent tonsillitis/tonsillar calculi at [facility] same-day surgery last February 02, 2020. As per operative note, Surgicel powder and Surgicel snow placed in the tonsillar fossae due to superficial nature of blood vessels running along the superior constrictor muscles of the pharynx. Anterior posterior tonsillar pillars were subsequently approximated by Vicryl. At home, progressive dysphagia/sore throat especially to solids noted by patient. Yesterday, patient noted achy submandibular swelling, muffled voice, and limited mouth opening. No tooth ache symptoms. No chest pain, no S OB. No fever, no chills. Patient subsequently gagged after taking a pill. Note of bloody sputum. Patient brought to [facility] ER for evaluation. Patient noted to be tachycardic on arrival at the ER. Sublingual swelling appreciated by ER provider on [place] as per documentation. Bedside neck ultrasound done by ER provider disclosed a hypoechoic area in the submental/submandibular space concerning for fluid collection causing pressure on upper airways. Patient given Decadron and Clindamycin at the ER. No ENT coverage at [facility] this weekend. Patient transferred to [facility] for ENT services after ER provider discussed case with ENT specialist pullman conductor for patient surgeon. 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 Admission Exam Per Admitting Provider GENERAL: uncomfortable, anxious, obese, muffled voice, no respiratory distress SKIN: Normal color, warm HEENT: [place] palpebral conjunctivae, no ptosis, dry buccal mucosa, oropharyngeal exam limited by trismus NECK : Supple, tender submandibular swelling CHEST : CTA, no tenderness HEART : RRR, no obvious murmurs ABDOMEN: Some distention, nontender EXTREMITIES : No LE swelling/tenderness, no other conspicuous deformities noted NEUROLOGIC : Coherent, no facial asymmetry, no other gross focality Principal Diagnosis Sepsis Post-operative peritonsillar abscess s/p incision and drainage Tonsillar bleeding s/p cauterization Discharge Exam CONSTITUTIONAL: WNWD, vitals as above, generally well-appearing EYES: pupils are round and equal bilaterally, normal conjunctivae, no scleral icterus ENT: external ear and nose normal, oropharynx with some expected swelling that is improved, she is managing her secretions, no palpable LAD or tenderness in cervical or submandicular region, no maxillary or ethmoid sinus tenderness NECK: trachea midline, no lymphadenopathy RESPIRATORY: clear to auscultation bilaterally, no crackles, rales or wheezes, normal respiratory effort CARDIOVASCULAR: regular rate and rhythm, S1 and 2 heard without murmurs, gallops or rubs, no JVD, no peripheral edema GASTROINTESTINAL: soft, nontender, nondistended, no guarding MUSCULOSKELETAL: strength 5/5 throughout, head is normocephalic and atraumatic SKIN: warm and dry NEUROLOGIC: No facial palsy, no dysarthria. CN 2-12 grossly intact, no sensory deficit, normal cognition, normal speech, no gross focal deficits. PSYCHIATRIC: alert cooperative and oriented to person, place and time. Discharge Data Allergies Allergy/AdvReac Type Severity Reaction Status Date / Time No Known Allergies Allergy Unverified 02/05/20 05:59 Consultations 02/05/20 05:08 Consult Boiler Maker Routine 02/05/20 06:02 Consult Otolaryngology (Head and Neck) Routine Procedures Performed Operation Date: 02/05/20 07:30 Actual Procedures p Incision and Drainage of Tonsillar Abscess with Hemostasis(Not Applicable) - Juju Cruz MD Hospital Course (1) Sepsis: (2) Tonsillar bleed: (3) Peritonsillar abscess: (4) Post-operative state: 19-year-old female status post tonsillectomy on 02/01 initially presented to [facility] 2 days postoperatively with reports of progres sive dysphagia and sore throat to solids and liquids. She had been noticing submandibular swelling, muffled voice and limited mouth opening. She then started noting bloody sputum prompting presentation to the hospital. She was transferred to [facility] and underwent incision and drainage of a tonsillar abscess with hemostasis of the tonsillar bleed by Dr. Cruz on the morning of 02/04. Wound culture was growing staph aureus sensitivities pending at the time of discharge. Patient notably has a history of MRSA screening in the nose. She remained on Unasyn and vancomycin while in the hospital as she presented looking septic. After resuscitation and source control she continued to improve and was transferred out of the ICU into the floor. At time of discharge she was tolerating full liquids and swallowing without difficulty, she was speaking without difficulty and oxygenating well on room air. She denied any significant pain and was requesting to go home. She was hemodynamically stable and afebrile outside of some mild tachycardia and was stable for discharge. She was sent home on liquid Augmentin with close ENT follow-up within a week. All postoperative instructions from the initial surgery were recommended to be followed. She and her both verbalized understanding with intent to comply. She remained afebrile during the hospitalization and blood cultures were negative at time of discharge with final readings pending. Total Time Total Time Spent Total Time Spent (In Minutes): 30 Total Time Includes: Examination of the Patient, Discharge Planning, Medication Reconciliation and Communication With Other Providers Discharge Plan Discharge Items Patient Disposition: Home - Self-Care Reason For Visit: SEPSIS, POTENTIAL AIRWAY OBSTRUCTION Discharge Diagnosis: Sepsis Post-operative peritonsillar abscess s/p incision and drainage Tonsillar bleeding s/p cauterization Condition on Discharge: Good Activity: Resume your previous activity Non-emergency contact: Primary Care Provider Call non-emergency contact if: you have any medication questions, your symptoms worsen, your pain is not controlled, your pain is worsening, your pain is unusual for you, your pain is concerning for you and you have a fever Follow-up/Referrals: Desi Hayden PA-C [Outside Practitioners] - (Date & Time 02/10/2020 11:20 AM Provider Desi Hayden PA-C [facility] ) Diet: Full liquid Addtl Attending Provider Instructions: Please take all medications as instructed on discharge list below. Please complete the full antibiotic course given, and follow-up with your original ENT surgeon in one week. You may also want to follow-up with your primary care physician in one week as you were hospitalized. This would be to ensure you are still doing well after going home and tat you are tolerating the antibiotics prescribed. It was a pleasure taking care of you! Please call if you have any questions or problems. You can reach a [facility] hospitalist on duty at [facility] 24 hours a day by calling [phone]. Take care of yourself. Es Beaulieu, DO [facility] Hospitalist Pending Studies at Discharge: Yes Studies:: wound culture and blood cultures-->final readings are pending at the time of discharge. Stand-Alone Forms: [facility], Opioid Pain Management, Work/School Release (Inpt) Medications and DC Order Prescriptions: New amoxicillin-pot clavulanate 400-57 mg/5 mL suspension for reconstitution 11 ml PO BID Qty: 200 RF: 0 Continued norethindrone-e.estradiol-iron [ FE 04/18 (28)] 1 mg-20 mcg (21)/75 mg (7) Tablet 1 tab PO DAILY RF: 0 amlodipine 10 mg tablet 10 mg PO DAILY RF: 0 hydrocodone-acetaminophen 7.5-325 mg/15 mL Solution 15.3 ml PO Q6H PRN (Reason: Pain, Moderate) RF: 0 levocetirizine 5 mg Tablet 5 mg PO DAILY RF: 0 melatonin 5 mg Tablet 5 mg PO HS RF: 0 Discharge Orders: Discharge Order (Routine); Ordered 02/06/20 Ordered By: Es Beaulieu Admission Data Admit Date/Time: 02/05/20 05:08 Attending Provider: Es Beaulieu Admit Provider: Guille Stovall Primary Care Provider: PCP,NO Other Providers: Jennifer Pompa ; Juju Cruz
--- NOTE | 2020-02-06 17:56 | Billing Data ---
Date of Service February 06, 2020 Coding Level of Care Code 65256 Subseq Hosp Care Lvl 1
== END 2020-02-06 16:41 | disposition home or self-care (01) | DRG 856 ==
LOC: SUATTDRO 05:08 → 1E 05:08 → 3E 02-06 09:59